=== PATIENT | male | born 1950 | race African-American/Black ===

== ENCOUNTER 2018-07-16 12:47 | Emergency (ER) | payer OTHER ==
[~2018-07-16] VITALS: Ht 170.2 cm; Wt 95.5 kg
[2018-07-16 12:53] VITALS: Ht 170.2 cm; Wt 95.5 kg
[2018-07-16] MEDS ORDERED: FUROSEMIDE20 MG PO (12:55)
[2018-07-16] MEDS ORDERED: NORVASC5 MG PO (12:55)
[2018-07-16] MEDS ORDERED: COZAAR50 MG PO (12:55)
[2018-07-16] MEDS ORDERED: PRAVACHOL20 MG PO (12:56)
[2018-07-16] MEDS ORDERED: FLOMAX0.4 MG PO (12:56)
[2018-07-16] MEDS ORDERED: OMEPRAZOLE20 M1 PO (12:56)
[2018-07-16] MEDS ORDERED: ALDACTONE25 MG PO (12:56)
[2018-07-16] MEDS ORDERED: COLACE100 MG PO (12:56)
[2018-07-16 13:24] LABS: BASOPHILS 0.8 % (0-2); EOSINOPHILS 4.1 % (0-7); HEMATOCRIT 29.3 % (42.0-54.0); HEMOGLOBIN 9.1 g/dL (13.5-17.5); IMMATURE GRANULOCYTES 0.3 % (0-5); LYMPHOCYTES 30.2 % (15-50); MCH 25.5 pg (26.0-34.0); MCHC 31.1 g/dL (31.0-37.0); MCV 82.1 fL (80.0-100.0); MEAN PLATELET VOLUME 8.4 fL (7.4-10.4); MONOCYTES 9.4 % (2-11); NEUTROPHILS 55.2 % (40-80); PLATELET COUNT 187 10x3/uL (130-400); RBC 3.57 10x6/uL (4.20-6.10); RDW 15.2 % (11.5-14.5); WBC 6.6 10x3/uL (4.8-10.8)
[2018-07-16 13:39] LABS: INR 1.01 (0.85-1.17); PROTIME 12.8 SECONDS (11.6-15.0)
[2018-07-16 13:45] LABS: ALBUMIN 3.5 g/dL (3.4-5.0); ALKALINE PHOSPHATASE 96 U/L (46-116); ALT (SGPT) 16 U/L (10-68); BILIRUBIN - TOTAL 0.19 mg/dL (0.2-1.3); CALC OSMOLALITY 281 mosm/kg (275-300); CALCIUM 9.1 mg/dL (8.5-10.1); CARBON DIOXIDE 27.8 mmol/L (21.0-32.0); CHLORIDE - SERUM 103 mmol/L (98-107); CREATININE - SERUM 1.2 mg/dL (0.6-1.3); GLUCOSE 145 mg/dL (74-106); POTASSIUM - SERUM 4.7 mmol/L (3.5-5.1); PROTEIN - SERUM 7.4 g/dL (6.4-8.2); SODIUM 138 mmol/L (136-145); UREA NITROGEN 21 mg/dL (7-18); eGFR NON AFRICAN AMERICAN 64 mL/min (90-120)
[2018-07-16 13:57] LABS: CKMB 0.8 U/L (0.0-3.6); CREATINE KINASE 67 UL (21-232); TROPONIN-I < 0.017 ng/mL (0.000-0.060)
[2018-07-16 15:52] VITALS: BP 133/79
== END 2018-07-16 15:56 | disposition other institution (70) ==
LOC: D.ER 12:47
PROVIDERS: Emergency Medicine
DX: I25.10 Atherosclerotic heart disease of native coronary artery without angina pectoris (principal); R07.9 Chest pain, unspecified; G40.909 Epilepsy, unspecified, not intractable, without status epilepticus; E11.9 Type 2 diabetes mellitus without complications; I10 Essential (primary) hypertension; K21.9 Gastro-esophageal reflux disease without esophagitis; F17.200 Nicotine dependence, unspecified, uncomplicated

== ENCOUNTER 2020-03-01 14:12 | Inpatient (IN) | payer MEDICAID ==
[2020-03-01] VITALS (10 sets, daily range): BP systolic 110–144; BP diastolic 59–99; BMI 37.7
[~2020-03-01] VITALS: Ht 170.2 cm; Wt 109.6 kg
[~2020-03-01 14:12] MED LIST: ALDACTONE25 MG PO; COLACE100 MG PO; COZAAR50 MG PO; FLOMAX0.4 MG PO; FUROSEMIDE20 MG PO; NORVASC5 MG PO; OMEPRAZOLE20 M1 PO; PRAVACHOL20 MG PO
[2020-03-01 15:06] LABS: BASOPHILS 0.2 % (0-2); EOSINOPHILS 0.2 % (0-7); HEMATOCRIT 39.7 % (42.0-54.0); HEMOGLOBIN 13.3 g/dL (13.5-17.5); IMMATURE GRANULOCYTES 0.3 % (0-5); LYMPHOCYTES 25.6 % (15-50); MCH 30.7 pg (26.0-34.0); MCHC 33.5 g/dL (31.0-37.0); MCV 91.7 fL (80.0-100.0); MEAN PLATELET VOLUME 9.9 fL (7.4-10.4); MONOCYTES 13.9 % (2-11); NEUTROPHILS 59.8 % (40-80); RBC 4.33 10x6/uL (4.20-6.10); RDW 12.5 % (11.5-14.5); WBC 5.8 10x3/uL (4.8-10.8)
[2020-03-01 15:13] LABS: PLATELET COUNT 118 10x3/uL (130-400)
[2020-03-01 15:14] LABS: CALC OSMOLALITY 286 mosm/kg (275-300); CALCIUM 8.2 mg/dL (8.5-10.1); CARBON DIOXIDE 29.6 mmol/L (21.0-32.0); CHLORIDE - SERUM 101 mmol/L (98-107); CREATININE - SERUM 1.6 mg/dL (0.6-1.3); GLUCOSE 115 mg/dL (74-106); POTASSIUM - SERUM 3.6 mmol/L (3.5-5.1); SODIUM 140 mmol/L (136-145); UREA NITROGEN 31 mg/dL (7-18); eGFR NON AFRICAN AMERICAN 46 mL/min (90-120)
[2020-03-01 15:35] LABS: ALKALINE PHOSPHATASE 85 U/L (30-120); ALT (SGPT) 59 U/L (10-68); BILIRUBIN - TOTAL 0.42 mg/dL (0.2-1.3); CKMB 8.9 U/L (0.0-3.6); CREATINE KINASE 135 UL (21-232); MAGNESIUM - SERUM 2.1 mg/dL (1.8-2.4)
[2020-03-01 15:38] LABS: TROPONIN-I 2.902 ng/mL (0.000-0.060)
[2020-03-01 15:55] LABS: APTT 27.1 SECONDS (22.8-39.4); INR 0.93 (0.85-1.17); PROTIME 12.5 SECONDS (11.6-15.0)
--- NOTE | 2020-03-01 21:03 | NUR ---
PATIENT ARRIVED TO UNIT. IV IN R AC. AMIO AT 1MG WITH NS AT 125. PATIENT IS ALERT AND AWAKE, DISORIENTED TO TIME. PATIENT STATES HIS DEFIB HAS BEEN GOING OFF ALL DAY. ASKED HIM WHEN WAS THE LAST TIME AND HE SAID ITS BEEN A COUPLE HOURS. GOT IN REPORT HE GOES INTO VTACH AND ITLL SHOCK HIM. PATIENT DENIES PAIN RIGHT NOW BUT STATES IT DOES HURT WHEN IT GOES OFF. STATED IF WE ENCOUNTER THAT SITUATION WE WILL ASK FOR PAIN MED. [facility] IS AWARE PATIENT IS IN ICU PER ER DOC ORDER IN COMMENT SECTION. PATIENT HAS INCISIONAL SCARE IN MIDLINE CHEST. NO ACUTE DISTRESS. UPON ARRIVAL SPO2 WAS 90%. PLACED ON 3 L NC AND NOW 98%. BP STABLE. AND HR IN 80'S CONTROLLED FIB. BABY MONITOR TESTED. WORKED. WILL CONTINUE TO MONITOR
--- NOTE | 2020-03-01 21:11 | NUR ---
PATIENT ASKED FOR FOOD. STATED HE WAS NPO AND WE COULD ASK THE DOCTOR IN THE MORNING.
--- NOTE | 2020-03-01 21:24 | NUR ---
PATIENT RESULTS CAME BACK POSITIVE FOR COVID 19.
[2020-03-02] VITALS (24 sets, daily range): BP systolic 119–170; BP diastolic 58–89; Ht 170.2 cm; Wt 109.6 kg
--- NOTE | 2020-03-02 01:34 | NUR ---
patient resting. no acute distress. will continue to montitor
[2020-03-02 03:33] LABS: BASOPHILS 0.2 % (0-2); EOSINOPHILS 0.2 % (0-7); HEMATOCRIT 39.4 % (42.0-54.0); HEMOGLOBIN 12.9 g/dL (13.5-17.5); IMMATURE GRANULOCYTES 0.4 % (0-5); LYMPHOCYTES 24.9 % (15-50); MCH 30.1 pg (26.0-34.0); MCHC 32.7 g/dL (31.0-37.0); MCV 91.8 fL (80.0-100.0); MEAN PLATELET VOLUME 9.3 fL (7.4-10.4); MONOCYTES 19.5 % (2-11); NEUTROPHILS 54.8 % (40-80); PLATELET COUNT 123 10x3/uL (130-400); RBC 4.29 10x6/uL (4.20-6.10); RDW 12.7 % (11.5-14.5); WBC 4.7 10x3/uL (4.8-10.8)
[2020-03-02 03:52] LABS: ALBUMIN 2.9 g/dL (3.4-5.0); ANION GAP 10.8 mmol/L (8-16); BILIRUBIN - TOTAL 0.41 mg/dL (0.2-1.3); CALCIUM 7.6 mg/dL (8.5-10.1); CARBON DIOXIDE 26.9 mmol/L (21.0-32.0); CREATININE - SERUM 1.4 mg/dL (0.6-1.3); POTASSIUM - SERUM 3.7 mmol/L (3.5-5.1); PROTEIN - SERUM 6.7 g/dL (6.4-8.2)
--- NOTE | 2020-03-02 04:53 | NUR ---
patient resting. no acute distress. see reassessment. will continue to monitor.
--- NOTE | 2020-03-02 07:00 | NUR ---
ASSESSMENT COMPLETE PER FLOWSHEET NO CO AT TIME. PT ON BIPAP AT 50 PERCENT.
--- NOTE | 2020-03-02 07:00 | NUR ---
ASSESSMENT COMPLETE. IN ISOLATION FOR COVID 19. WILL CONTINUE TO MONITOR. PT ON ROOM AIR SATING 94 PERCENT.
--- NOTE | 2020-03-02 10:00 | NUR ---
CONT IN PUI WAITING RESULTS.
--- NOTE | 2020-03-02 11:00 | NUR ---
EATING LUNCH NO CO AT TIME.
--- NOTE | 2020-03-02 12:00 | NUR ---
EATING LUNCH WITH ASSIST. CONSUMED ABOUT 25 PERCENT.
--- NOTE | 2020-03-02 14:15 | NUR ---
PT CONTINUES TO PULL OFF O2 TRYING TO PULL OUT IV AND BURNHAM RESTRAINTS PLACED PER DR LARKIN ORDER.
--- NOTE | 2020-03-02 15:00 | NUR ---
SLEEPING NO DISTRESS NOTED.
--- NOTE | 2020-03-02 16:00 | NUR ---
CONT ON ROOM AIR TEMP 100.6 DR ALEXIS NOTIFIED.
--- NOTE | 2020-03-02 17:00 | NUR ---
EATING SUPPER NO CO AT TIME.
--- NOTE | 2020-03-02 17:00 | NUR ---
PT REFUSING SUPPER AT BEDSIDE TRYING TO HELP.
--- NOTE | 2020-03-02 18:18 | NUR ---
WATCHING TV NO CO AT TIME.
[2020-03-03] VITALS (24 sets, daily range): BP systolic 103–175; BP diastolic 25–97
--- NOTE | 2020-03-03 02:07 | NUR ---
1900- LAYING IN BED. BREATHING ROOM AIR. A/O X 4. PIV TO RIGHT AC 2100- INDEPENDENT WITH REPOSITIONING. 2300-SITTING UP ON SIDE OF BED, EATING. 0100-SITTING UP AGAIN ON SIDE OF BED, EATING. DENIES ANY NEEDS. 0200-PATIENT SITTING UP ON SIDE OF BED, SLUMPED OVER. PULSE OX NOT READING. REPLACED WITH NEW. OXYGEN AT 90%. PLACED O2 ON AT 2L VIA NC. HELP TO LAY BACK IN BED WITH HOB ELEVATED. DENIES ANY OTHER NEEDS. PULSE OX 96% WHEN LEAVING
--- NOTE | 2020-03-03 06:48 | NUR ---
0300- REASSESSMENT COMPLETED. NO CHANGES 0500- VSS. PATIENT GETTING UP OOB.
--- NOTE | 2020-03-03 07:00 | NUR ---
0700. BED SIDE REPORT RECIEVED. ASSESSMENT COMPLETED. PT DENIES SOB, OR CP. STATES HE HAS NOT BEEN SHOCKED. PT SAT 100% ON 5 LITERS DECREASED TO 3. ATTEMPTED TO START PIV AND OBTAIN AM LABS X 3 STICKS. WILL ASK LAP FOR ASSISTANCE. PT DENIES NEEDS AT THIS TIME. BED LOW CALL LIGHT IN REACH SIDE RAILS RAISED X2 GUARD AT DOOR SIDE. 0900 DR ALMODOVAR AT BEDSIDE. PT DENIES NEEDS AT THIS TIME. DR LARKIN OK TO TRANSFER IF OK WITH DR RENNER AND CARDIOLOGY. WILL CONTINIE TO MONITOR. [address] RENNER AT BEDSIDE. UPDATED CONDITION. PT HAD NCON TOP OF HEAD. PT CONTINUE TO SAT 95-100% TURNED OFF OXYGEN. WILL CONTINUE TO MONITOR VITALS. DR RENNER STATED THAT HE WOULD LIKE TO KEEP THE PATIENT IN ICU OVERNIGHT TO MONITOR O2 SATURATION. 1300 PT UP WATCHING TV. DENIES NEEDS. VSS 1500 PROVIDED PT WITH SUPPLIES FOR BATH. PT BATHED HIMSELF WITH OUT DIFFICULTY. VSS 1700 PT AWAKE ALERT EATING DINNER. DENIES NEEDS AT THIS TIME. VSS
--- NOTE | 2020-03-03 10:46 | HP ---
PATIENT: JEAN CARLOS HORN MEDICAL RECORD: [id number] ACCOUNT: [id number] LOCATION:[facility]2315 : 48 ADMISSION DATE: 03/01/20 PCP: RAFAEL CHUA HISTORY AND PHYSICAL EXAMINATION REASON FOR ADMISSION: Defibrillator discharge times 6 today after the patient spiked fever. HISTORY OF PRESENT ILLNESS: The patient was brought from the [facility] at the request of Dr. Rafael Chua for pacemaker defibrillator firing and possible COVID. He has been recently shocked in the ED as well. He had been recently given Z-Marcos for upper respiratory tract infection. There is high risk for COVID as over 9% of the population there has positive test. He denies loss of smell or taste. He is complaining of chest pain because of the defibrillator spikes. PAST MEDICAL HISTORY: He has had history of seizures, type 2 diabetes mellitus, hypertension, coronary artery disease, GERD, congestive heart failure, arrhythmias with defibrillator placement. PAST SURGICAL HISTORY: Defibrillator placement. SOCIAL HISTORY: Tobacco use none recently. He did smoke for 20 years. Alcohol none. He is currently incarcerated. FAMILY HISTORY: Positive for father with hypertension. CURRENT MEDICATIONS: Norvasc 5 mg a day, losartan 40 mg a day, furosemide 20 mg a day, pravastatin 20 mg at bedtime, Colace 100 mg b.i.d. p.r.n., Prilosec 20 mg a day, Aldactone 25 mg a day, tamsulosin (Flomax) 0.4 mg daily. REVIEW OF SYSTEMS: CONSTITUTIONAL: Some subjective fever. No recent fatigue. HEENT: No recent visual change, sinus congestion. RESPIRATORY: Denies short of breath or cough. CARDIAC: No recent palpitations. Had chest pain from defibrillator firing. GASTROINTESTINAL: Has intermittent dyspepsia. No change in stools or blood per rectum. GENITOURINARY: Has nocturia twice nightly and slow stream. No recent dysuria or hematuria. ENDOCRINE: Denies polyuria, polydipsia, heat or cold intolerance. NEUROLOGIC: No history of seizures in the past. No recent stroke. Denies memory loss. PHYSICAL EXAMINATION: VITAL SIGNS: His temperature is 100.4, pulse is 105 and regular, respirations are 18, blood pressure is 120/65 with a sat of 90% on room air. GENERAL: The patient is oriented times 3, no acute distress, well nourished. HEENT: Atraumatic. PERRLA. Sclerae nonicteric. ENT exam is unremarkable. NECK: Supple without meningismus or masses. CHEST: No wheeze or rales. HEART: Regular rate. ABDOMEN: Soft, nontender. EXTREMITIES: Trace pretibial edema bilaterally. BACK: No CVA tenderness. HISTORY AND PHYSICAL [id number] JEAN CARLOS HORN SKIN: No icterus. NEUROLOGIC: The patient is oriented times 3. Cranial nerves are intact. Speech is normal. Gait was not tested. No motor deficits appreciated. PSYCHIATRIC: Mood appears within normal limits. LABORATORY DATA: EKG showed heart rate of 103, sinus rhythm, normal axis. Potassium is 3.6, CO2 is 29.6, BUN is 31, creatinine is 1.6, magnesium 2.1. Liver functions are normal. Creatine kinase is 135. CPK-MB elevated at 8.9. Troponin is elevated at 2.9. INR is 0.93. White count 5800, H&H of 13 and 39.7 respectively, and normal diff. UA is currently pending. Chest x-ray shows sternotomy wires and defibrillator, otherwise unremarkable. ADDENDUM: The patient was recently given a Zithromax pack for upper respiratory tract symptoms. This may well be causing prolonged QT and the pacemaker fires as a result. Cardiology is being consulted. They will make a plan concerning these problems. Due to high risk for COVID, the patient will be placed in the ICU under COVID precautions. ASSESSMENT: 1. Defibrillator misfire, possibly due to prolonged QT due to Zithromax therapy. 2. Subjective fever. 3. History of hypertension, acute renal insufficiency, GERD, BPH, glucose intolerance, currently euglycemic. PLAN: As above. Cultures will be obtained. Cardiology is consulted. COVID rule out. NTS:[id number] Voice Confirmation ID: [id number] DOCUMENT ID: [id number] JENNYFER LARKIN MD at 1046 CC: [id number] DICTATION DATE: 03/01/20 1658 TUBE AND MANIFOLD BUILDER: 03/01/20 1847 [place] [address]
[2020-03-03 13:00] LABS: HEMATOCRIT 40.3 % (42.0-54.0); HEMOGLOBIN 13.7 g/dL (13.5-17.5); LYMPHOCYTES 27.6 % (15-50); MCH 30.4 pg (26.0-34.0); MEAN PLATELET VOLUME 8.6 fL (7.4-10.4); RDW 12.6 % (11.5-14.5); WBC 4.3 10x3/uL (4.8-10.8)
[2020-03-03 13:01] LABS: MCV 89.6 fL (80.0-100.0); PLATELET COUNT 168 10x3/uL (130-400)
[2020-03-03 13:09] LABS: INR 0.99 (0.85-1.17); PROTIME 13.1 SECONDS (11.6-15.0)
[2020-03-03 13:10] LABS: APTT 33.5 SECONDS (22.8-39.4)
[2020-03-03 13:25] LABS: % SATURATION 15 % (15-55); IRON 18 ug/dl (35-150); TOTAL IRON BIND CAPACITY 120 ug/dl (260-445); UNSAT IRON BIND CAPACITY 102 ug/dl (150-375)
[2020-03-03 13:33] LABS: ALBUMIN 2.9 g/dL (3.4-5.0); ANION GAP 12.3 mmol/L (8-16); BILIRUBIN - TOTAL 0.49 mg/dL (0.2-1.3); CALCIUM 7.6 mg/dL (8.5-10.1); CARBON DIOXIDE 27.5 mmol/L (21.0-32.0); CREATININE - SERUM 1.2 mg/dL (0.6-1.3); POTASSIUM - SERUM 3.8 mmol/L (3.5-5.1); PROTEIN - SERUM 6.3 g/dL (6.4-8.2)
--- NOTE | 2020-03-03 19:00 | NUR ---
BEDSIDE REPORT RECEIVED. RECEIVED PATIENT IN BED AWAKE AND ALERT. VSS. CALL LIGHT IN REACH AND ABLE TO UTILIZE TO MAKE NEEDS KNOWN.
--- NOTE | 2020-03-03 20:30 | NUR ---
SHIFT ASSESSMENT COMPLETED PER FLOW SHEET WITH NO ACUTE DISTRESS OBSERVED. MONITORS CONNECTED TO PATIENT WITH ALARMS SET. VSS. ALERT AND ORIENTED X 4. SAWMILL RELIEF WORKER OUTSIDE OF DOOR, COVID 19 ISOLATION PRECAUTIONS OBSERVED. PATIENT DENIES COUGH/DYSPNEA/SOB ON RA AT PRESENT. DENIES NEEDS. CALL LIGHT IN REACH AND ABLE TO UTILIZE TO MAKE NEEDS KNOWN. WILL CONTINUE CURRENT POC
--- NOTE | 2020-03-03 23:00 | NUR ---
REASSESSMENT COMPLETED PER FLOW SHEET WITH NO ACUTE DISTRESS OBSERVED. VSS. CALL LIGHT IN REACH. DENIES NEEDS
[2020-03-04] VITALS (8 sets, daily range): BP systolic 133–170; BP diastolic 71–85
[2020-03-04 02:15] LABS: HEMATOCRIT 39.7 % (42.0-54.0); HEMOGLOBIN 13.6 g/dL (13.5-17.5); MCH 30.6 pg (26.0-34.0); MCHC 34.3 g/dL (31.0-37.0); MCV 89.2 fL (80.0-100.0); MEAN PLATELET VOLUME 8.9 fL (7.4-10.4); NEUTROPHILS 59.2 % (40-80); PLATELET COUNT 188 10x3/uL (130-400); RBC 4.45 10x6/uL (4.20-6.10); RDW 12.4 % (11.5-14.5); WBC 4.9 10x3/uL (4.8-10.8)
[2020-03-04 02:32] LABS: % SATURATION 17 % (15-55); IRON 19 ug/dl (35-150); TOTAL IRON BIND CAPACITY 109 ug/dl (260-445); UNSAT IRON BIND CAPACITY 90 ug/dl (150-375)
[2020-03-04 02:41] LABS: ANION GAP 14.1 mmol/L (8-16); C-REACTIVE PROTEIN 19.3 mg/dL (0.0-0.9); CALCIUM 7.9 mg/dL (8.5-10.1); CARBON DIOXIDE 26.5 mmol/L (21.0-32.0); CREATININE - SERUM 1.3 mg/dL (0.6-1.3); MAGNESIUM - SERUM 1.9 mg/dL (1.8-2.4); POTASSIUM - SERUM 3.6 mmol/L (3.5-5.1)
--- NOTE | 2020-03-04 02:50 | NUR ---
SPOKE WITH DR. PALACIO RE MULTILPLE ICD DISCHARGES [facility]. NEW ORDERS RECEIVED.
--- NOTE | 2020-03-04 03:00 | NUR ---
AWAKE AND ALERT. REASSESSMENT COMPLETED PER FLOW SHEET WITH NO ACUTE DISTRESS OBSERVED. VSS. CALL LIGHT IN REACH
--- NOTE | 2020-03-04 05:00 | NUR ---
RESTING WITH EYES CLOSED. RESP EVEN AND UNLABORED. VSS. CALL LIGHT IN REACH
--- NOTE | 2020-03-04 07:00 | NUR ---
ASSESSMENT COMPLETED. SEE FLOWSHEET. ALERT AND ORIENTED TO PERSON, PLACE AND TIME. SR ON THE MONITOR. GAURD OUTSIDE ROOM. DENIES ANY PAIN OR NEEDS AT THIS TIME. WILL CONT TO MONITOR.
[2020-03-04 09:32] LABS: MAGNESIUM - SERUM 2.1 mg/dL (1.8-2.4); POTASSIUM - SERUM 4.1 mmol/L (3.5-5.1)
--- NOTE | 2020-03-04 12:00 | NUR ---
DR ALEXIS AT BEDSIDE. UPDATE GIVEN.
[2020-03-04] MEDS ORDERED: LASIX40 MG PO (13:58)
--- NOTE | 2020-03-04 14:06 | NUR ---
DR VERMA HERE TO SEE. NEW ORDERED RECEIVED. PAGED DR PALACIO FOR UPDATE AND FOR POSSIBLE DC.
--- NOTE | 2020-03-04 14:29 | NUR ---
DR PALACIO RETURNED CALL. ANTONIA FOR PT TO DC BACK TO [facility].
--- NOTE | 2020-03-04 14:30 | NUR ---
SPOKE TO THE GUARD AT BEDSIDE. THEY HAVE CALLED FOR TRANSPORTATION.
--- NOTE | 2020-03-04 16:30 | NUR ---
CESAR HUYNH'D VIA KASSY WITH TAI Archuleta.
== END 2020-03-04 16:40 | DRG 314 ==
LOC: D.ER 14:12 → D.ICU 16:09
PROVIDERS: Family Medicine; Internal Medicine Cardiovascular Disease; Internal Medicine Pulmonary Disease; ADMIT Family Medicine; ATTEND Family Medicine
DX: T82.897A Other specified complication of cardiac prosthetic devices, implants and grafts, initial encounter (principal); U07.1 COVID-19; I47.2 Ventricular tachycardia; N17.9 Acute kidney failure, unspecified; J81.1 Chronic pulmonary edema; I25.5 Ischemic cardiomyopathy; I25.10 Atherosclerotic heart disease of native coronary artery without angina pectoris; I10 Essential (primary) hypertension; E78.5 Hyperlipidemia, unspecified; K21.9 Gastro-esophageal reflux disease without esophagitis; D69.6 Thrombocytopenia, unspecified; E11.21 Type 2 diabetes mellitus with diabetic nephropathy; E11.22 Type 2 diabetes mellitus with diabetic chronic kidney disease; I12.9 Hypertensive chronic kidney disease with stage 1 through stage 4 chronic kidney disease, or unspecified chronic kidney disease; N18.9 Chronic kidney disease, unspecified

== ENCOUNTER 2020-04-02 17:02 | Emergency (ER) | payer OTHER ==
[~2020-04-02] VITALS: Ht 170.2 cm; Wt 104.5 kg
[~2020-04-02 17:02] MED LIST changes: +LASIX40 MG PO
[2020-04-02 17:04] VITALS: Ht 170.2 cm; Wt 104.5 kg
[2020-04-02 17:52] LABS: BASOPHILS 0.9 % (0-2); EOSINOPHILS 0.7 % (0-7); HEMATOCRIT 34.9 % (42.0-54.0); HEMOGLOBIN 11.3 g/dL (13.5-17.5); IMMATURE GRANULOCYTES 0.9 % (0-5); LYMPHOCYTES 46.5 % (15-50); MCH 30.4 pg (26.0-34.0); MCHC 32.4 g/dL (31.0-37.0); MCV 93.8 fL (80.0-100.0); MONOCYTES 13.2 % (2-11); NEUTROPHILS 37.8 % (40-80); PLATELET COUNT 150 10x3/uL (130-400); RBC 3.72 10x6/uL (4.20-6.10); RDW 14.4 % (11.5-14.5); WBC 4.5 10x3/uL (4.8-10.8)
[2020-04-02 17:55] LABS: CALC OSMOLALITY 284 mosm/kg (275-300); CALCIUM 8.3 mg/dL (8.5-10.1); CHLORIDE - SERUM 107 mmol/L (98-107); CREATININE - SERUM 1.2 mg/dL (0.6-1.3); GLUCOSE 89 mg/dL (74-106); POTASSIUM - SERUM 4.5 mmol/L (3.5-5.1); SODIUM 144 mmol/L (136-145); UREA NITROGEN 10 mg/dL (7-18); eGFR NON AFRICAN AMERICAN 64 mL/min (90-120)
[2020-04-02 17:56] LABS: APTT 28.9 SECONDS (22.8-39.4); INR 0.92 (0.85-1.17); PROTIME 12.3 SECONDS (11.6-15.0)
[2020-04-02 18:11] LABS: ALBUMIN 3.3 g/dL (3.4-5.0); ALKALINE PHOSPHATASE 112 U/L (30-120); ALT (SGPT) 30 U/L (10-68); BILIRUBIN - TOTAL 0.31 mg/dL (0.2-1.3); CKMB 0.7 U/L (0.0-3.6); CREATINE KINASE 57 UL (21-232); MAGNESIUM - SERUM 1.9 mg/dL (1.8-2.4); PROTEIN - SERUM 6.8 g/dL (6.4-8.2)
[2020-04-02 18:17] LABS: TROPONIN-I < 0.017 ng/mL (0.000-0.060)
[2020-04-02 21:09] VITALS: BP 134/89
== END 2020-04-02 21:09 ==
LOC: D.ER 17:02
PROVIDERS: Emergency Medicine
DX: T82.199A Other mechanical complication of unspecified cardiac device, initial encounter (principal); E11.9 Type 2 diabetes mellitus without complications; I10 Essential (primary) hypertension